=== PATIENT | male | born 1970 ===

== ENCOUNTER 2024-02-16 15:43 | Emergency (ER) | payer SELFPAY ==
[~2024-02-16] VITALS: Ht 172.7 cm; Wt 65.9 kg
[2024-02-16 15:46] VITALS: BP 191/104; PULSE 66; RESP 18; TEMP 97.9
== END 2024-02-16 18:17 | disposition left against medical advice (07) ==
LOC: EMS 15:43
DX: S61.213A Laceration without foreign body of left middle finger without damage to nail, initial encounter (principal); Z53.21 Procedure and treatment not carried out due to patient leaving prior to being seen by health care provider; W23.0XXA Caught, crushed, jammed, or pinched between moving objects, initial encounter; Y93.89 Activity, other specified; Y92.89 Other specified places as the place of occurrence of the external cause; Y99.8 Other external cause status
CPT/HCPCS: 99281; Z7502